=== PATIENT | female | born 1975 | race Two or more races ===

== ENCOUNTER 2022-04-15 12:50 | Inpatient (IN) | payer MEDICAID ==
[~2022-04-15] VITALS: Ht 154.9 cm; Wt 68.9 kg
[2022-04-15] VITALS (9 sets, daily range): BP systolic 108–126; BP diastolic 51–73
[2022-04-15] MEDS ORDERED: HEPARIN SODIUM (PORCINE) 5000 UNITS/ML 1ML VIAL ONE (13:18)
[2022-04-15] MEDS ORDERED: VERAPAMIL 2.5MG/ML INJ 2ML VIAL IV ONE (13:18)
[2022-04-15] MEDS ORDERED: ANGIOMAX 250 MG VIAL IV ONE (13:18)
[2022-04-15] MEDS ORDERED: SODIUM CHL 0.9% 50 ML ONE (13:19)
[2022-04-15] MEDS ORDERED: LIDOCAINE 2%HCL (LOCAL ANESTH.) INJ 10ml MDV ONE (13:19)
[2022-04-15] MEDS ORDERED: fentaNYL CITRATE 100 MCG/2 ML VL ONE (13:19)
[2022-04-15] MEDS ORDERED: MIDAZOLAM HCL 2MG/2ML 2ml VIAL (1mg/ml) ONE (13:21)
[2022-04-15] MEDS ORDERED: ASPirin 325 MG TAB ONE (13:29)
[2022-04-15] MEDS ORDERED: NITROGLYCERIN 0.4 MG SL TAB SL PRN (13:30)
[2022-04-15] MEDS ORDERED: MAALOX PLUS or MAALOX 30 ML PO PRN (13:30)
[2022-04-15] MEDS ORDERED: MORPHINE SULFATE INJ 2 MG/ml SYRG IV PRN ×2 (13:30)
[2022-04-15] MEDS ORDERED: HYDROcodone-ACET 5/325MG TAB PO PRN (13:30)
[2022-04-15] MEDS ORDERED: ONDANSETRON HCL 4 MG/2 ML VIAL IV PRN (13:30)
[2022-04-15] MEDS ORDERED: ASPirin 325 MG TAB PO ONE (13:30)
[2022-04-15] MEDS ORDERED: ACETAMINOPHEN 325 MG TAB PO PRN (13:30)
[2022-04-15] MEDS ORDERED: LORazepam 0.5 MG TAB PO PRN (13:30)
[2022-04-15 13:34] LABS: Basophils # (auto) 0 10 ^3/uL (0-0.2); Basophils % (auto) 0.4 % (0.0-2.0); Eosinophils # (auto) 0.1 10 ^3/uL (0-0.8); Eosinophils % (auto) 0.7 % (0.0-7.0); Hemoglobin 15.3 g/dL (12.2-16.2); Lymphocytes # (auto) 1.1 10 ^3/uL (0.4-5.4); Lymphocytes % (auto) 12.2 % (10.0-50.0); Mean Corpuscular Hgb Conc. 33.3 g/dL (32.0-36.0); Monocytes # (auto) 0.5 10 ^3/uL (0-1.3); Monocytes % (auto) 5.4 % (0.0-12.0); Neutrophils # (auto) 7.5 10 ^3/uL (1.6-8.6); Neutrophils % (auto) 81.3 % (37.0-80.0); Nucleated Red Blood Cells % 0.3 %; Red Blood Cells 4.95 10^6/uL (4.0-5.20); Red Cell Distribution Width 13.3 % (11.8-14.3); White Blood Cell 9.3 10^3/uL (4.4-10.8)
[2022-04-15 13:46] LABS: Albumin 3.6 g/dL (3.4-5.0); Calcium 9.1 mg/dL (8.5-10.1); Magnesium 2.1 mg/dL (1.6-2.6); Potassium 3.9 mmol/L (3.5-5.1)
[2022-04-15 13:48] LABS: BUN/Creatinine Ratio 16.2
[2022-04-15 13:51] LABS: Bilirubin, Total 0.3 mg/dL (0.2-1.0); Total Protein 7.2 g/dL (6.4-8.2)
[2022-04-15 13:53] LABS: INR 0.93 (0.9-1.15); Partial Thromboplastin Time 29.2 sec (24.6-33.4)
[2022-04-15] MEDS ORDERED: CLOPIDOGREL 300 MG TAB ONE (14:19)
[2022-04-15] MEDS: SODIUM CHLOR 0.9% PF (SALINE LOCK) 10ML VIAL/SYR IV SCH ×2 (18:00→22:37)
[2022-04-15 21:23] LABS: Urine Bacteria NONE SEEN /hpf (None Seen); Urine Blood Negative /uL (Negative); Urine Specific Gravity 1.021 (1.001-1.035); Urine WBC 1 /hpf (0 - 5)
[2022-04-15 21:37] LABS: Alcohol, Urine < 3.0 mg/dL (0-10); Amphetamine Screen, Urine NEGATIVE (NEGATIVE); Barbiturate Scree,Urine NEGATIVE (NEGATIVE); Benzodiazephine Screen, Urine POSITIVE (NEGATIVE); Cannabinoid Screen, Urine NEGATIVE (NEGATIVE); Cocaine Screen, Urine NEGATIVE (NEGATIVE); Opiate Scree,Urine NEGATIVE (NEGATIVE); Phencyclidine Screen, Urine NEGATIVE (NEGATIVE)
[2022-04-15] MEDS ORDERED: ATORVASTATIN 20 MG TAB PO SCH (22:00)
[2022-04-15] MEDS: ATORVASTATIN 20 MG TAB PO SCH (22:37)
[2022-04-16] VITALS (7 sets, daily range): BP systolic 100–109; BP diastolic 55–62
[2022-04-16] MEDS: SODIUM CHLOR 0.9% PF (SALINE LOCK) 10ML VIAL/SYR IV SCH ×3 (06:00→22:14)
[2022-04-16 06:10] LABS: Basophils # (auto) 0 10 ^3/uL (0-0.2); Basophils % (auto) 0.4 % (0.0-2.0); Eosinophils # (auto) 0.1 10 ^3/uL (0-0.8); Hematocrit 40.3 % (36.0-46.0); Hemoglobin 13.7 g/dL (12.2-16.2); Lymphocytes # (auto) 1.1 10 ^3/uL (0.4-5.4); Lymphocytes % (auto) 15.3 % (10.0-50.0); Mean Corpuscular Hemoglobin 31.3 pg (28.0-32.0); Mean Corpuscular Hgb Conc. 33.9 g/dL (32.0-36.0); Mean Corpuscular Volume 92.5 fL (80.0-100.0); Monocytes # (auto) 0.6 10 ^3/uL (0-1.3); Monocytes % (auto) 8.1 % (0.0-12.0); Neutrophils # (auto) 5.2 10 ^3/uL (1.6-8.6); Neutrophils % (auto) 74.2 % (37.0-80.0); Nucleated Red Blood Cells % 0.1 %; Red Blood Cells 4.36 10^6/uL (4.0-5.20); Red Cell Distribution Width 13.3 % (11.8-14.3)
[2022-04-16 06:22] LABS: Albumin 3.1 g/dL (3.4-5.0); Calcium 8.3 mg/dL (8.5-10.1); Potassium 3.9 mmol/L (3.5-5.1)
[2022-04-16 06:28] LABS: BUN/Creatinine Ratio 16.7; Bilirubin, Total 0.6 mg/dL (0.2-1.0); Total Protein 6.3 g/dL (6.4-8.2)
[2022-04-16] MEDS: CLOPIDOGREL BISULFATE 75 MG TAB PO SCH (10:00)
[2022-04-16] MEDS: ASPirin 81 mg TAB PO SCH (10:00)
[2022-04-16] MEDS ORDERED: ATOR20TA50 PO (11:23)
[2022-04-16] MEDS ORDERED: ASPI-325 PO (11:23)
[2022-04-16] MEDS ORDERED: CLOP75TA70 PO (11:23)
[2022-04-16] MEDS ORDERED: ERGO1CAP23 PO (11:23)
[2022-04-16] MEDS ORDERED: CAR3125T OR (11:26)
[2022-04-16] MEDS: CARVEDILOL 3.125 MG TAB PO SCH (22:00)
[2022-04-16] MEDS: ATORVASTATIN 20 MG TAB PO SCH (22:14)
[2022-04-17 05:00] VITALS: BP 103/56
[2022-04-17 05:36] LABS: Potassium 3.9 mmol/L (3.5-5.1)
[2022-04-17 05:45] LABS: Albumin 3.2 g/dL (3.4-5.0); BUN/Creatinine Ratio 17.5; Calcium 8.8 mg/dL (8.5-10.1)
[2022-04-17 06:08] LABS: Bilirubin, Total 0.5 mg/dL (0.2-1.0); Total Protein 6.4 g/dL (6.4-8.2)
[2022-04-17] MEDS: SODIUM CHLOR 0.9% PF (SALINE LOCK) 10ML VIAL/SYR IV SCH ×2 (06:56→14:05)
[2022-04-17 07:30] VITALS: BP 118/81
[2022-04-17] MEDS: ASPirin 81 mg TAB PO SCH (09:57)
[2022-04-17] MEDS: CLOPIDOGREL BISULFATE 75 MG TAB PO SCH (09:57)
[2022-04-17] MEDS: CARVEDILOL 3.125 MG TAB PO SCH (10:02)
[2022-04-17 13:00] VITALS: BP 94/58
[2022-04-17 16:10] VITALS: BP 118/81
[2022-04-18 08:40] LABS: Hepatitis B Surface Antibody Negative (Negative)
[2022-04-18 09:11] LABS: Hepatitis A Total Antibody Positive (Negative)
[2022-04-18 09:33] LABS: Hepatitis C Antibody Negative (Negative)
== END 2022-04-17 16:35 | disposition home or self-care (01) | DRG 174 ==
LOC: ER 12:50 → TELE 13:27 → TELE-EAST 17:49
PROVIDERS: ADMIT Internal Medicine; ATTEND Internal Medicine
PROC: 027034Z Dilation of Coronary Artery, One Artery with Drug-eluting Intraluminal Device, Percutaneous Approach (ICD-10-PCS; principal; 2022-04-15)
PROC: 02C03ZZ Extirpation of Matter from Coronary Artery, One Artery, Percutaneous Approach (ICD-10-PCS; 2022-04-15)
PROC: B2111ZZ Fluoroscopy of Multiple Coronary Arteries using Low Osmolar Contrast (ICD-10-PCS; 2022-04-15)
PROC: B240ZZ3 Ultrasonography of Single Coronary Artery, Intravascular (ICD-10-PCS; 2022-04-15)
DX: I21.19 ST elevation (STEMI) myocardial infarction involving other coronary artery of inferior wall (principal); E55.9 Vitamin D deficiency, unspecified; I21.09 ST elevation (STEMI) myocardial infarction involving other coronary artery of anterior wall; I10 Essential (primary) hypertension; E78.5 Hyperlipidemia, unspecified; R73.03 Prediabetes; Z79.82 Long term (current) use of aspirin; Z20.822 Contact with and (suspected) exposure to COVID-19
CPT/HCPCS: 36415; 71045; 80053; 80061; 80307; 81001; 81025; 82306; 83036; 83735; 83880; 84439; 84443; 84484; 85025; 85610; 85730; 86704; 86706; 86708; 86803; 87340; 87426; 93005; 93306; 99291; G0378; J2001; J2250

== ENCOUNTER 2022-04-21 13:27 | Inpatient (IN) | payer MEDICAID ==
[~2022-04-21] VITALS: Ht 157.5 cm; Wt 68.5 kg
[~2022-04-21 13:27] MED LIST: ASPI-325 PO; ATOR20TA50 PO; CAR3125T OR; CLOP75TA70 PO; ERGO1CAP23 PO
[2022-04-21 14:23] LABS: Basophils # (auto) 0 10 ^3/uL (0-0.2); Basophils % (auto) 0.3 % (0.0-2.0); Eosinophils # (auto) 0.3 10 ^3/uL (0-0.8); Eosinophils % (auto) 2.6 % (0.0-7.0); Hematocrit 46.3 % (36.0-46.0); Hemoglobin 15.6 g/dL (12.2-16.2); Lymphocytes # (auto) 1.4 10 ^3/uL (0.4-5.4); Lymphocytes % (auto) 13.9 % (10.0-50.0); Mean Corpuscular Hemoglobin 31.4 pg (28.0-32.0); Mean Corpuscular Hgb Conc. 33.6 g/dL (32.0-36.0); Mean Corpuscular Volume 93.2 fL (80.0-100.0); Monocytes # (auto) 0.8 10 ^3/uL (0-1.3); Monocytes % (auto) 7.8 % (0.0-12.0); Neutrophils # (auto) 7.8 10 ^3/uL (1.6-8.6); Neutrophils % (auto) 75.4 % (37.0-80.0); Nucleated Red Blood Cells % 0.1 %; Red Blood Cells 4.97 10^6/uL (4.0-5.20); Red Cell Distribution Width 13.6 % (11.8-14.3); White Blood Cell 10.3 10^3/uL (4.4-10.8)
[2022-04-21 14:42] LABS: Albumin 3.5 g/dL (3.4-5.0); BUN/Creatinine Ratio 18.2; Calcium 8.8 mg/dL (8.5-10.1)
[2022-04-21 14:45] LABS: Bilirubin, Total 0.3 mg/dL (0.2-1.0); Total Protein 7.1 g/dL (6.4-8.2)
[2022-04-21 15:10] LABS: Urine Bacteria FEW /hpf (None Seen); Urine Blood Negative /uL (Negative); Urine Mucus FEW (None Seen); Urine Specific Gravity 1.017 (1.001-1.035); Urine WBC 3 /hpf (0 - 5)
[2022-04-21] MEDS ORDERED: ENOXAPARIN SOD 80 MG/0.8ML SYRINGE SC ONE (15:30)
[2022-04-21] MEDS ORDERED: ONDANSETRON HCL 4 MG/2 ML VIAL IV PRN (16:15)
[2022-04-21] MEDS ORDERED: MORPHINE SULFATE INJ 2 MG/ml SYRG IV PRN (16:15)
[2022-04-21] MEDS ORDERED: NITROGLYCERIN 0.4 MG SL TAB SL PRN (16:15)
[2022-04-21] MEDS ORDERED: IOHEXOL 350 MG/ML 100ML IJ ONE (17:04)
[2022-04-21 22:00] VITALS: BP 114/72
[2022-04-21] MEDS: ATORVASTATIN 20 MG TAB PO SCH (22:00)
[2022-04-21] MEDS: CARVEDILOL 3.125 MG TAB PO SCH (22:00)
[2022-04-22] VITALS (7 sets, daily range): BP systolic 101–114; BP diastolic 58–72
[2022-04-22 06:18] LABS: Basophils # (auto) 0 10 ^3/uL (0-0.2); Basophils % (auto) 0.5 % (0.0-2.0); Eosinophils # (auto) 0.3 10 ^3/uL (0-0.8); Eosinophils % (auto) 3.7 % (0.0-7.0); Hematocrit 40.1 % (36.0-46.0); Hemoglobin 13.8 g/dL (12.2-16.2); Lymphocytes # (auto) 1.6 10 ^3/uL (0.4-5.4); Lymphocytes % (auto) 19.6 % (10.0-50.0); Mean Corpuscular Hemoglobin 31.9 pg (28.0-32.0); Mean Corpuscular Hgb Conc. 34.4 g/dL (32.0-36.0); Mean Corpuscular Volume 92.7 fL (80.0-100.0); Monocytes # (auto) 0.7 10 ^3/uL (0-1.3); Monocytes % (auto) 8.8 % (0.0-12.0); Neutrophils # (auto) 5.5 10 ^3/uL (1.6-8.6); Neutrophils % (auto) 67.4 % (37.0-80.0); Nucleated Red Blood Cells % 0.1 %; Red Blood Cells 4.32 10^6/uL (4.0-5.20); Red Cell Distribution Width 13.3 % (11.8-14.3); White Blood Cell 8.2 10^3/uL (4.4-10.8)
[2022-04-22 06:36] LABS: Albumin 3.2 g/dL (3.4-5.0); Calcium 8.5 mg/dL (8.5-10.1); Potassium 3.6 mmol/L (3.5-5.1)
[2022-04-22 06:41] LABS: Bilirubin, Total 0.4 mg/dL (0.2-1.0); Total Protein 6.4 g/dL (6.4-8.2)
[2022-04-22] MEDS: CLOPIDOGREL BISULFATE 75 MG TAB PO SCH (09:52)
[2022-04-22] MEDS: CARVEDILOL 3.125 MG TAB PO SCH ×2 (09:53→21:43)
[2022-04-22] MEDS: PANTOPRAZOLE 40 MG TAB PO SCH (09:53)
[2022-04-22] MEDS: ENOXAPARIN SOD 40 MG/0.4 ML SYRINGE SC SCH (09:53)
[2022-04-22] MEDS ORDERED: guaiFENesin-DM 100/10mg/5ml SYR PO PRN (11:00)
[2022-04-22] MEDS ORDERED: ASPirin 81 mg TAB PO ONE (15:30)
[2022-04-22] MEDS: ATORVASTATIN 20 MG TAB PO SCH (21:42)
[2022-04-22] MEDS: ACETAMINOPHEN 325 MG TAB PO PRN (21:45)
[2022-04-23 05:00] VITALS: BP 105/67
[2022-04-23 08:15] VITALS: BP 104/67
[2022-04-23] MEDS: ACETAMINOPHEN 325 MG TAB PO PRN (08:20)
[2022-04-23] MEDS ORDERED: DEXT1SYP9 GT (09:46)
[2022-04-23] MEDS ORDERED: AZITTAB PO (09:46)
[2022-04-23] MEDS ORDERED: ASPirin 81 mg TAB PO SCH (10:00)
[2022-04-23] MEDS: PANTOPRAZOLE 40 MG TAB PO SCH (10:13)
[2022-04-23] MEDS: CLOPIDOGREL BISULFATE 75 MG TAB PO SCH (10:13)
[2022-04-23] MEDS: ENOXAPARIN SOD 40 MG/0.4 ML SYRINGE SC SCH (10:14)
[2022-04-23] MEDS: CARVEDILOL 3.125 MG TAB PO SCH (10:14)
[2022-04-23 10:24] VITALS: BP 104/67
== END 2022-04-23 12:45 | disposition home or self-care (01) | DRG 113 ==
LOC: ER 13:27 → TELE 16:16 → TELE-CENTR 18:26
PROVIDERS: ADMIT Nurse Practitioner; ATTEND Internal Medicine Geriatric Medicine
DX: J06.9 Acute upper respiratory infection, unspecified (principal); E44.1 Mild protein-calorie malnutrition; I25.10 Atherosclerotic heart disease of native coronary artery without angina pectoris; E78.5 Hyperlipidemia, unspecified; I10 Essential (primary) hypertension; N39.0 Urinary tract infection, site not specified; Z20.822 Contact with and (suspected) exposure to COVID-19; Z79.02 Long term (current) use of antithrombotics/antiplatelets; Z79.82 Long term (current) use of aspirin; Z82.5 Family history of asthma and other chronic lower respiratory diseases; Z83.3 Family history of diabetes mellitus; Z98.61 Coronary angioplasty status; Z68.27 Body mass index [BMI] 27.0-27.9, adult; R07.89 Other chest pain; I25.2 Old myocardial infarction
CPT/HCPCS: 36415; 71275; 80053; 81001; 84484; 85025; 85379; 87081; 87426; 93005; 96372; G0378

== ENCOUNTER 2023-05-09 12:05 | Emergency (ER) | payer MEDICAID ==
[~2023-05-09] VITALS: Ht 160 cm; Wt 68.0 kg
[~2023-05-09 12:05] MED LIST changes: +AZITTAB PO; -CAR3125T OR; +CARV-214 OR; +DEXT1SYP9 GT
[2023-05-09 12:29] LABS: Basophils # (auto) 0.1 10 ^3/uL (0-0.2); Basophils % (auto) 0.8 % (0.0-2.0); Eosinophils # (auto) 0.3 10 ^3/uL (0-0.8); Hematocrit 42.6 % (36.0-46.0); Hemoglobin 14.1 g/dL (12.2-16.2); Lymphocytes # (auto) 1.6 10 ^3/uL (0.4-5.4); Lymphocytes % (auto) 24.5 % (10.0-50.0); Mean Corpuscular Hemoglobin 31.2 pg (28.0-32.0); Mean Corpuscular Hgb Conc. 33.1 g/dL (32.0-36.0); Mean Corpuscular Volume 94.3 fL (80.0-100.0); Monocytes # (auto) 0.6 10 ^3/uL (0-1.3); Monocytes % (auto) 8.6 % (0.0-12.0); Neutrophils # (auto) 4.1 10 ^3/uL (1.6-8.6); Neutrophils % (auto) 62.1 % (37.0-80.0); Nucleated Red Blood Cells % 0.1 %; Red Blood Cells 4.52 10^6/uL (4.0-5.20); Red Cell Distribution Width 13.9 % (11.8-14.3); White Blood Cell 6.6 10^3/uL (4.4-10.8)
[2023-05-09 12:52] LABS: Alanine Aminotransferase 54 U/L (7-40); Alkaline Phosphatase 105 U/L (46-116); Anion Gap 2 (5-15); Aspartate Aminotransferase 32 U/L (13-40); BUN/Creatinine Ratio 11.3 (10.0-20.0); Blood Urea Nitrogen 8 mg/dL (9-23); Calcium 9.3 mg/dL (8.7-10.4); Carbon Dioxide 30 mmol/L (20-30); Chloride 108 mmol/L (98-107); Glucose 89 mg/dL (74-106); Potassium 3.7 mmol/L (3.5-5.1); Sodium 140 mmol/L (136-145); Total Protein 6.6 g/dL (5.7-8.2)
[2023-05-09 12:53] LABS: Bilirubin, Total 0.5 mg/dL (0.2-1.0)
[2023-05-09 15:12] VITALS: BP 110/64; PULSE 60; RESP 18; TEMP 98.1; O2SAT 100
== END 2023-05-09 15:13 | disposition home or self-care (01) ==
LOC: ER 12:05
DX: R07.89 Other chest pain (principal); I10 Essential (primary) hypertension
CPT/HCPCS: 36415; 71046; 80053; 84484; 85025; 93005